=== PATIENT | male | born 1995 | race Caucasian/White ===

== ENCOUNTER 2022-01-24 13:59 | Emergency (ER) | payer OTHER ==
[2022-01-24 14:16] VITALS: BMI 27.6
[2022-01-24] MEDS ORDERED: KETOROLAC TROMETHAMINE 30 MG/1 ML VIAL IM ONE (15:30)
[2022-01-24] MEDS ORDERED: SODIUM CHLORIDE 0.9% 500 ML INFUS.BAG IV ONE (15:31)
[2022-01-24] MEDS ORDERED: KETOROLAC TROMETHAMINE 30 MG/1 ML VIAL ONE (16:32)
[2022-01-24 16:48] LABS: BASO % 0.3 % (0-2.0); EOS % 0.1 % (0-4.5); HEMATOCRIT 47.1 % (35.4-49); HEMOGLOBIN 15.7 GM/dL (11.7-16.9); LYMPH % 7.6 % (8-40); MCH 27.3 pg (25.7-33.7); MCHC 33.3 g/dl (32.0-35.9); MEAN CELL VOLUME 81.8 fl (80-96); MEAN PLT VOLUME 8.8 fl (7.5-11.1); MONO % 6.1 % (3.8-10.2); NEUT % 85.9 % (42.8-82.8); PLATELET COUNT 254 10^3/uL (134-434); RBC 5.76 M/mm3 (4.00-5.60); RDW 13.6 % (11.9-15.9); WHITE BLOOD COUNT 18.9 K/mm3 (4.0-10.0)
[2022-01-24 17:10] LABS: CALCIUM 9.5 mg/dL (8.5-10.1)
[2022-01-24 17:11] LABS: ALBUMIN 4.7 g/dl (3.4-5.0); BLOOD UREA NITROGEN 11.6 mg/dL (7-18); MAGNESIUM 2.7 mg/dL (1.8-2.4)
[2022-01-24 17:14] LABS: CREATININE 1.3 mg/dL (0.55-1.3)
[2022-01-24 17:15] LABS: BILIRUBIN,TOTAL 0.5 mg/dL (0.2-1); TOT PROT 7.5 g/dl (6.4-8.2)
[2022-01-24 19:29] LABS: PH,URINE 5.5 (5.0-8.0); URINE APPEARANCE CLEAR; URINE BILIRUBIN NEGATIVE (NEGATIVE); URINE COLOR YELLOW; URINE GLUCOSE (UA) NEGATIVE (NEGATIVE); URINE KETONE NEGATIVE (NEGATIVE); URINE LEUK ESTERASE NEGATIVE (NEGATIVE); URINE NITRITE NEGATIVE (NEGATIVE); URINE PROTEIN NEGATIVE (NEGATIVE); URINE UROBILINOGEN 0.2 mg/dL (0.2-1.0)
[2022-01-24 20:01] VITALS: BP 110/66; PULSE 97; TEMP 97.9
== END 2022-01-24 20:01 | disposition home or self-care (01) ==
LOC: JERFT 13:59 → JER 13:59 → JERFT 20:01
PROC: 3E023GC Introduction of Other Therapeutic Substance into Muscle, Percutaneous Approach (ICD-10-PCS; principal; 2022-01-24)
DX: T73.3XXA Exhaustion due to excessive exertion, initial encounter (principal)
CPT/HCPCS: 36415; 71046-TC-FY; 80053; 81003; 82550; 82553; 83735; 85025; 93005; 93010; 99285-25